=== PATIENT | male | born 1970 | race Caucasian/White ===

== ENCOUNTER 2017-05-28 11:36 | Inpatient (IN) ==
[2017-05-28 12:07] LABS: Bilirubin,Urine Negative (Negative); Blood,Urine Trace (Negative); Color,Urine Yellow (Yellow); Glucose,Urine (UA) Normal (Normal); Ketones,Urine Negative (Negative); Leukocyte Esterase,Urine Negative (Negative); Nitrite,Urine Negative (Negative); Protein,Urine Negative (Neg-Trace); Specific Gravity,Urine 1.012 (1.010-1.025); Urobilinogen,Urine Normal (Normal)
[2017-05-28 12:11] LABS: Clarity,Urine Clear (Clear)
--- NOTE | 2017-05-28 12:35 | Emergency Department Note ---
Disposition Clinical Impression: Pneumonia, Smoker, Obesity, Family history of cardiac disorder in father, Sepsis, Pleural effusion, Hypoxemia, Non-cardiac chest pain, Abnormal EKG, Elevated d-dimer Disposition: Admitted As Inpatient Referrals: NONE,PCP [Primary Care Provider] - Forms: ED Satisfaction Letter General Adult HPI - General Chief complaint: ED Chest Pain Stated complaint: Chest pressure,Congestion Time Seen by Provider: 05/28/17 12:13 Source: patient Limitations: no limitations - History of Present Illness HPI Narrative: 46-year-old male reports the emergency department complaining of midsternal chest pain. The pain is sometimes sharp. He has had the pain intermittently for 3 days. No leg swelling or pain or coughing up blood. The patient has no history of DVT PE or cancer. He is a smoker and has a strong family history of coronary artery disease as well as a history of hypercholesterolemia. The patient had SVT and ablation previously he is currently not taking anticoagulant medication. There is no history of trauma abdominal pain vomiting diarrhea or acute back pain. He has no personal history of aneurysms. No syncope described. The patient has had no trouble walking talking hearing seeing or speaking. The patient has had a cough, but no runny nose or ear pain sore throat or fever. Abdominal pain vomiting or diarrhea. The patient has had pain for 3 days. His female medical care administrator reports his aunt had history of breast cancer and he had been evaluated secondary to concerns for chest swelling regarding malignancy in the past, no malignancy reported or noted based on negative mammogram. The pain does not necessarily radiate to the arms or back or neck. Pain Scale: 8 - Related Data Home Medications Medication Instructions Recorded Confirmed Dexlansoprazole [Dexilant] 60 mg PO DAILY 05/28/17 05/28/17 HYDROcodone/Acet 10/325 mg [[place] 1 tab PO Q8H PRN 05/28/17 05/28/17 10-325 mg] RX: ALPRAZolam [Xanax 1 MG Tablet] 1 mg PO HS PRN 05/28/17 05/28/17 RX: Ibuprofen [Motrin] 600 mg PO Q8H PRN 05/28/17 05/28/17 Allergies Allergy/AdvReac Type Severity Reaction Status Date / Time No Known Allergies Allergy Verified 05/28/17 11:51 All systems ED: reviewed and negative except as stated. Past Medical History - Past Medical History Medical history: Reports: arthritis, other Psychiatric history: Reports: no psych history - Social History Smoking Status: Current every day smoker Smokeless Tobacco Status: No Alcohol use: Reports: none Drug use: Reports: none Physical Exam - General Limitations: no limitations General appearance: alert, in no apparent distress - Head Head exam: atraumatic, normocephalic, normal inspection - Eye Eye exam: Present: normal appearance, PERRL, EOMI. Absent: scleral icterus, conjunctival injection - ENT ENT exam: normal exam, normal oropharynx, mucous membranes moist, TM's normal bilaterally, normal external ear exam - Neck Neck exam: Present: normal inspection, full ROM, trachea midline - Chest Chest inspection: Present: symmetric chest wall rise, other (Asymmetry of the pectoralis noted left larger than right. No flank tenderness or acute trauma.) . Absent: tenderness - Respiratory Respiratory exam: Present: normal lung sounds bilaterally. Absent: respiratory distress, wheezes, stridor, accessory muscle use, prolonged expiratory phase - Cardiovascular Cardiovascular exam: Present: regular rate, normal rhythm, normal heart sounds - Abdominal Exam Abdominal exam: Present: soft, Non-Tender, normal bowel sounds. Absent: tenderness, distention, guarding, rebound, rigidity, Patel's sign, Rovsing's sign, tenderness at McBurney's Point, pulsatile mass - Extremities Exam Extremities exam: Present: normal inspection, full ROM, normal capillary refill. Absent: tenderness, pedal edema, joint swelling, calf tenderness - Expanded Lower Extremity Exam Neurovascular/Tendon exam: Present: normal capillary refill. Absent: motor deficit, sensory deficit, tendon deficit, extremity cold to touch, pallor - Back Exam Back exam: Present: normal inspection, full ROM. Absent: tenderness, CVA tenderness (R), CVA tenderness (L), vertebral tenderness - Neurological Exam Neurological exam: Present: alert, oriented X3, CN II-XII intact. Absent: motor sensory deficit - Psychiatric Psychiatric exam: Present: normal affect, normal mood - Skin Skin exam: Present: warm, dry, intact, normal color. Absent: rash, cyanosis, diaphoresis, erythema, pallor, mottled Course Vital Signs Temperature 99.3 F 05/28/17 11:52 Pulse Rate 101 05/28/17 11:52 Respiratory Rate 22 05/28/17 11:52 Blood Pressure 130/86 05/28/17 11:52 O2 Sat by Pulse Oximetry 94 05/28/17 11:52 Temperature 99.3 F 05/28/17 11:52 Pulse Rate 89 05/28/17 13:00 Respiratory Rate 16 05/28/17 13:00 Blood Pressure 111/80 05/28/17 13:00 O2 Sat by Pulse Oximetry 95 05/28/17 13:00 Oxygen Delivery Oxygen Delivery Room Air Medical Decision Making - MDM Narrative Medical decision making narrative: The patient appears to have pneumonitis based on x-ray. Lactic acid negative. The patient is tachycardic and tachypneic with oxygen saturations dipped down into the 90% range on room air. Given he is significantly symptomatic with pain , and meets SIRS/sepsis criteria, and is hypoxemic, I thought it might be appropriate to admit the patient to the hospital. Levaquin was ordered IV fluids were ordered. Morphine Zofran an aspirin initially were ordered as well. The patient's EKG does not show acute changes. Oxygen was ordered as well as Solu-Medrol and a DuoNeb. The patient is currently stable. I discussed the case with the hospitalist on-call who has accepted the patient to their care. - Lab Data Lab results reviewed: Yes I reviewed the patient's lab results. Result diagrams: 05/28/17 12:45 05/28/17 12:45 Lab Results 05/28/17 05/28/17 05/28/17 Range/Units 11:48 12:45 12:45 WBC 10.0 (4.3-11.1) K/mcL RBC 5.21 (4.19-5.50) M/mcL Hgb 16.5 (12.9-16.9) g/dL Hct 49.5 (37.5-50.1) % MCV 95.0 (83.0-100.0) fL MCH 31.7 (28.0-33.3) pg MCHC 33.3 (31.6-35.5) g/dL RDW 13.8 (11.5-14.5) % Plt Count 226 (140-400) K/mcL MPV 9.8 (9.4-12.4) fL Immature Gran % 0.3 (0-4) % Seg Neutrophils % 72.3 % Lymphocytes % 15.9 % Monocytes % 10.5 % Eosinophils % 0.6 % Basophils % 0.4 % Neutrophils # 7.2 (1.6-8.9) K/mcL Lymphocytes # 1.6 (0.6-4.6) K/mcL Monocytes # 1.1 (0.0-1.3) K/mcL Eosinophils # 0.1 (0.0-0.6) K/mcL Basophils # 0.0 (0.0-0.2) K/mcL D-Dimer (0-500) ng/mLFEU Sodium 136 (136-145) mEq/L Potassium 3.6 (3.5-4.5) mEq/L Chloride 104 (98-109) mEq/L Carbon Dioxide 24 (19-29) mEq/L BUN 4 L (8-26) mg/dL Creatinine 0.85 (0.72-1.25) mg/dL Est GFR ( Amer) > 60 (> 60) Est GFR (Non-Af Amer) > 60 (> 60) BUN/Creatinine Ratio 5 L (6-26) Glucose 103 H (70-99) mg/dL Calculated Osmolality 279 L (280-300) Lactic Acid (0.5-2.2) mmol/L Calcium 9.2 (8.6-10.8) mg/dL Total Bilirubin 0.4 (0.2-1.2) mg/dL AST 14 (5-34) Units/L ALT 15 (0-55) Units/L Alkaline Phosphatase 94 (38-126) Units/L Troponin I (0-0.03) ng/mL C-Reactive Protein (Less than 5) mg/L Serum Total Protein 7.3 (6.0-8.3) g/dL Albumin 3.2 L (3.5-5.0) g/dL Globulin 4.1 H (2.4-3.5) g/dL Albumin/Globulin Ratio 0.8 L (1.1-2.2) Lipase (8-78) Units/L Urine Color Yellow (Yellow) Urine Clarity Clear (Clear) Urine pH 6.0 (5.0-8.0) pH Units Ur Specific [place] 1.012 (1.010-1.025) Urine Protein Negative (Neg-Trace) mg/dL Urine Glucose (UA) Normal (Normal) mg/dL Urine Ketones Negative (Negative) mg/dL Urine Blood Trace H (Negative) Urine Nitrite Negative (Negative) Urine Bilirubin Negative (Negative) Urine Urobilinogen Normal (Normal) mg/dL Ur Leukocyte Esterase Negative (Negative) Ur Culture Indicated? NO (NO) 05/28/17 05/28/17 05/28/17 Range/Units 12:45 12:45 12:45 WBC (4.3-11.1) K/mcL RBC (4.19-5.50) M/mcL Hgb (12.9-16.9) g/dL Hct (37.5-50.1) % MCV (83.0-100.0) fL MCH (28.0-33.3) pg MCHC (31.6-35.5) g/dL RDW (11.5-14.5) % Plt Count (140-400) K/mcL MPV (9.4-12.4) fL Immature Gran % (0-4) % Seg Neutrophils % % Lymphocytes % % Monocytes % % Eosinophils % % Basophils % % Neutrophils # (1.6-8.9) K/mcL Lymphocytes # (0.6-4.6) K/mcL Monocytes # (0.0-1.3) K/mcL Eosinophils # (0.0-0.6) K/mcL Basophils # (0.0-0.2) K/mcL D-Dimer (0-500) ng/mLFEU Sodium (136-145) mEq/L Potassium (3.5-4.5) mEq/L Chloride (98-109) mEq/L Carbon Dioxide (19-29) mEq/L BUN (8-26) mg/dL Creatinine (0.72-1.25) mg/dL Est GFR ( Amer) (> 60) Est GFR (Non-Af Amer) (> 60) BUN/Creatinine Ratio (6-26) Glucose (70-99) mg/dL Calculated Osmolality (280-300) Lactic Acid 1.4 (0.5-2.2) mmol/L Calcium (8.6-10.8) mg/dL Total Bilirubin (0.2-1.2) mg/dL AST (5-34) Units/L ALT (0-55) Units/L Alkaline Phosphatase (38-126) Units/L Troponin I 0.00 (0-0.03) ng/mL C-Reactive Protein 124 H (Less than 5) mg/L Serum Total Protein (6.0-8.3) g/dL Albumin (3.5-5.0) g/dL Globulin (2.4-3.5) g/dL Albumin/Globulin Ratio (1.1-2.2) Lipase 22 (8-78) Units/L Urine Color (Yellow) Urine Clarity (Clear) Urine pH (5.0-8.0) pH Units Ur Specific [place] (1.010-1.025) Urine Protein (Neg-Trace) mg/dL Urine Glucose (UA) (Normal) mg/dL Urine Ketones (Negative) mg/dL Urine Blood (Negative) Urine Nitrite (Negative) Urine Bilirubin (Negative) Urine Urobilinogen (Normal) mg/dL Ur Leukocyte Esterase (Negative) Ur Culture Indicated? (NO) 05/28/17 Range/Units 12:45 WBC (4.3-11.1) K/mcL RBC (4.19-5.50) M/mcL Hgb (12.9-16.9) g/dL Hct (37.5-50.1) % MCV (83.0-100.0) fL MCH (28.0-33.3) pg MCHC (31.6-35.5) g/dL RDW (11.5-14.5) % Plt Count (140-400) K/mcL MPV (9.4-12.4) fL Immature Gran % (0-4) % Seg Neutrophils % % Lymphocytes % % Monocytes % % Eosinophils % % Basophils % % Neutrophils # (1.6-8.9) K/mcL Lymphocytes # (0.6-4.6) K/mcL Monocytes # (0.0-1.3) K/mcL Eosinophils # (0.0-0.6) K/mcL Basophils # (0.0-0.2) K/mcL D-Dimer 1181 H (0-500) ng/mLFEU Sodium (136-145) mEq/L Potassium (3.5-4.5) mEq/L Chloride (98-109) mEq/L Carbon Dioxide (19-29) mEq/L BUN (8-26) mg/dL Creatinine (0.72-1.25) mg/dL Est GFR ( Amer) (> 60) Est GFR (Non-Af Amer) (> 60) BUN/Creatinine Ratio (6-26) Glucose (70-99) mg/dL Calculated Osmolality (280-300) Lactic Acid (0.5-2.2) mmol/L Calcium (8.6-10.8) mg/dL Total Bilirubin (0.2-1.2) mg/dL AST (5-34) Units/L ALT (0-55) Units/L Alkaline Phosphatase (38-126) Units/L Troponin I (0-0.03) ng/mL C-Reactive Protein (Less than 5) mg/L Serum Total Protein (6.0-8.3) g/dL Albumin (3.5-5.0) g/dL Globulin (2.4-3.5) g/dL Albumin/Globulin Ratio (1.1-2.2) Lipase (8-78) Units/L Urine Color (Yellow) Urine Clarity (Clear) Urine pH (5.0-8.0) pH Units Ur Specific [place] (1.010-1.025) Urine Protein (Neg-Trace) mg/dL Urine Glucose (UA) (Normal) mg/dL Urine Ketones (Negative) mg/dL Urine Blood (Negative) Urine Nitrite (Negative) Urine Bilirubin (Negative) Urine Urobilinogen (Normal) mg/dL Ur Leukocyte Esterase (Negative) Ur Culture Indicated? (NO) - Radiology Data Radiology results reviewed: Yes I reviewed the patient's radiology results. Critical Care Time Critical Care Time: Yes (31) Attestation: 10 minutes initial evaluation 10 Minutes documenting the medical record and reviewing data 5 minutes reevaluation 6 minutes reviewing with the hospitalist and arranging for admission
[2017-05-28] MEDS ORDERED: Ondansetron 4 MG/2 ML VIAL IVP ONE (12:36)
[2017-05-28] MEDS ORDERED: *HR* Morphine 2 MG/ML SYRINGE IVP ONE (12:36)
[2017-05-28] MEDS ORDERED: Aspirin 325 MG TABLET PO ONE (12:36)
[2017-05-28 12:55] LABS: Basophils % 0.4 %; Eosinophils # 0.1 K/mcL (0.0-0.6); Eosinophils % 0.6 %; Hematocrit 49.5 % (37.5-50.1); Hemoglobin 16.5 g/dL (12.9-16.9); Immature Granulocytes % 0.3 % (0-4); Lymphocytes # 1.6 K/mcL (0.6-4.6); Lymphocytes % 15.9 %; Mean Corpuscular HGB Conc 33.3 g/dL (31.6-35.5); Mean Corpuscular Hemoglobin 31.7 pg (28.0-33.3); Mean Platelet Volume 9.8 fL (9.4-12.4); Monocytes # 1.1 K/mcL (0.0-1.3); Monocytes % 10.5 %; Neutrophils # 7.2 K/mcL (1.6-8.9); Platelet Count 226 K/mcL (140-400); Red Blood Count 5.21 M/mcL (4.19-5.50); Red Cell Distribution Width 13.8 % (11.5-14.5); Segmented Neutrophils % 72.3 %
[2017-05-28] MEDS ORDERED: 0.9 % Sodium Chloride 1,000 ML IVC ONE (12:58)
[2017-05-28] MEDS ORDERED: Levofloxacin 750 MG/150 ML 750 MG/150 ML BAG IVPB ONE (12:59)
[2017-05-28 13:11] LABS: Alanine Aminotransferase 15 Units/L (0-55); Albumin 3.2 g/dL (3.5-5.0); Albumin/Globulin Ratio 0.8 (1.1-2.2); Alkaline Phosphatase 94 Units/L (38-126); Aspartate Amino Transferase 14 Units/L (5-34); BUN/Creatinine Ratio 5 (6-26); Bilirubin,Total 0.4 mg/dL (0.2-1.2); Blood Urea Nitrogen 4 mg/dL (8-26); C-Reactive Protein 124 mg/L (Less than 5); Calcium 9.2 mg/dL (8.6-10.8); Carbon Dioxide 24 mEq/L (19-29); Chloride 104 mEq/L (98-109); Globulin 4.1 g/dL (2.4-3.5); Glucose 103 mg/dL (70-99); Lipase 22 Units/L (8-78); Osmolality,Calculated 279 (280-300); Potassium 3.6 mEq/L (3.5-4.5); Sodium 136 mEq/L (136-145); Total Protein 7.3 g/dL (6.0-8.3); eGFR For African Americans > 60 (> 60); eGFR For Non-African Americans > 60 (> 60)
[2017-05-28] MEDS ORDERED: methylPREDNISolone 125 MG/2 ML VIAL IVP ONE (13:11)
[2017-05-28] MEDS ORDERED: Ipratropium/Albuterol Neb 3 ML IH ONE (13:12)
[2017-05-28] MEDS ORDERED: Naloxone 0.4 MG/ML INJ IVP PRN (16:05)
[2017-05-28] MEDS ORDERED: ALPRAZolam 1 MG TABLET PO PRN (16:13)
--- NOTE | 2017-05-28 16:18 | Internal Med History&Physical ---
<Stephanie Swartz Thomas - Last Filed: 05/28/17 16:33> Date of Encounter: 05/28/17 Time of Encounter: 16:15 Assessment and Plan (1) Pneumonia, unspecified organism Current visit: Yes Status: Acute presented with SOB. Chest CTA with right middle lobe pneumonia, no pulmonary embolism. Levaquin started in ED; will change to Azithromycin and Rocephin. Urinary antigens, resp PCR and sputum cx pending. De-escalate ATB as culture finalize and/or clinically improves. Will need repeat imaging once ATB completed as malignancy could not be ruled out (2) Chest pain Current visit: Yes Status: Acute for 2-3 days prior to presentation. ASA given on arrival. CP reproducible on exam. Low suspicion for ACS. Initial troponin negative, EKG without acute ST changes. Cycle troponin, check echo. Qualifiers: Chest pain type: unspecified Qualified Code(s): R07.9 - Chest pain, unspecified (3) Hip pain, chronic Current visit: Yes Status: Acute bilateral hip pain hx. Cont home vicodin, ibuprofen. Can follow-up outpatient Qualifiers: Laterality: right Qualified Code(s): M25.551 - Pain in right hip; G89.29 - Other chronic pain; G89.29 - Other chronic pain (4) DVT prophylaxis Current visit: Yes Status: Acute heparin Internal Medicine - H&P: HPI Chief complaint: chest ain and SOB Admitted From: Home Plans for Post Hospital Care: Home History of present illness: Mr. Nash is a 46 year old male with PMH anxiety and bilateral hip pain who presented to [facility] on 05/28/2017 with complaints of chest pain and SOB. HE was founf to have pneumonia and was placed in observation status for IV ATB and ACS rule out. Information obtained from chart review and patient report. Patient says he has been experiencing CP and SOB over the last 2-3 days. He described chest pain as constant and like someone sitting on chest, nothing makes better or worse. He also reports SOB and cough. thinks he felt warm last night. Past Med Surg Social Fam HX - Past Medical History Medical history: arthritis, other Psychiatric history: no psych history - Past Surgical History Surgical History: other (ablation ) - Social History Smoking Status: Current every day smoker Packs per day: 1.5 Smokeless Tobacco Status: No Alcohol use: none Drug use: none Internal Medicine - H&P: Meds ALPRAZolam [Xanax 1 MG Tablet] 1 mg PO HS PRN 05/28/17 [History] Dexlansoprazole [Dexilant] 60 mg PO DAILY 05/28/17 [History] HYDROcodone/Acet 10/325 mg [[place] 10-325 mg] 1 tab PO Q8H PRN 05/28/17 [History] Ibuprofen [Motrin] 600 mg PO Q8H PRN 05/28/17 [History] 3 Allergy/AdvReac Type Severity Reaction Status Date / Time No Known Allergies Allergy Verified 05/28/17 11:51 All Systems PM: A 10-system review of systems was performed and is negative for pertinent findings except as documented above in the HPI. - Constitutional Constitutional: no chills, no fever(s), no night sweats - EENT Eyes: no change in vision, no discharge, no pain, no photophobia Ears: no ear discharge, no ear pain, no tinnitus Nose, mouth and throat: no dysphagia, no nasal discharge, no neck pain, no sore throat - Cardiovascular Cardiovascular ROS IM: chest pain, dyspnea, dyspnea on exertion, no diaphoresis , no lightheadedness, no palpitations, no syncope - Respiratory Respiratory: cough, dyspnea, dyspnea on exertion, no wheezing, no excessive phlegm production - Gastrointestinal Gastrointestinal: no abdominal pain, no diarrhea, no hematemesis, no hematochezia, no melena, no nausea, no vomiting - Musculoskeletal Musculoskeletal ROS IM: no numbness, no tingling - Integumentary Integumentary IM: no rash, no unusual bruising - Neurological Neurological ROS: no confusion, no convulsions, no focal weakness, no numbness, no tingling, no tremor(s) - Hematologic/Lymphatic Hematologic/Lymphatic: no easy bruising - Constitutional Vitals: Temp Pulse Resp BP Pulse Ox 99.3 F 89 16 111/80 95 05/28/17 11:52 05/28/17 13:00 05/28/17 13:00 05/28/17 13:00 05/28/17 13:00 General appearance: Present: A&O X 3, no acute distress - Head Head exam: Present: atraumatic, normocephalic - Eye Eye exam: Present: PERRL, conjuntiva pink, sclera anicteric Pupils: Present: PERRL - Neck Neck exam general surgery: Present: supple, trachea midline. Absent: lymphadenopathy - Respiratory Respiratory exam: Present: rhonchi. Absent: accessory muscle use, wheezes Additional comments: diminished breath sounds - Cardiovascular Cardiovascular exam: Present: RRR, +S1, +S2. Absent: diastolic murmur, gallop, rubs, systolic murmur Additional comments: chest wall tenderness - GI/Abdominal GI/Abdominal exam: Present: normal bowel sounds, soft, no peritoneal signs. Absent: distended, tenderness - Extremities Exam Extremities exam: Present: warm, radial pulses palpable and symmetrical. Absent : calf tenderness, cyanotic, pedal edema - Neurological Exam Neurological exam: Present: CN II-XII intact, oriented X3, no focal deficits. Absent: pronater drift, facial droop, speech deficit - Skin Skin exam: Present: dry, intact Internal Med - H&P Results - Labs CBC & Chem 7: 05/28/17 12:45 05/28/17 12:45 <Pollo Burns - Last Filed: 05/28/17 19:55> Date of Encounter: 05/28/17 Internal Medicine - H&P: HPI History of present illness: Mr. Nash is a 46 year old male All Systems PM: A 10-system review of systems was performed and is negative for pertinent findings except as documented above in the HPI. - Constitutional Vitals: Temp Pulse Resp BP Pulse Ox 98.0 F 92 16 105/63 92 05/28/17 18:27 05/28/17 18:27 05/28/17 18:27 05/28/17 18:27 05/28/17 18:27 Internal Med - H&P Results - Labs CBC & Chem 7: 05/28/17 12:45 05/28/17 12:45 Labs: Cardiac Enzymes 05/28/17 Range/Units 19:08 Troponin I 0.00 (0-0.03) ng/mL - Attending Attestation I independently obtained history and examined this patient and my medical decision-making was reviewed with the nurse practitioner. I agree with the documented findings, disposition and treatment plan as described. My findings are summarized below: He is in no acute distress, speaking in full sentences. Lungs are clear bilaterally heart is regular. Chest x-ray reveals findings consistent with pneumonia. Plan: We will treat the patient with ceftriaxone and azithromycin for pneumonia , IV steroids and inhaled bronchodilator.
[2017-05-28] MEDS ORDERED: Ibuprofen 600 MG TABLET PO PRN (16:29)
[2017-05-28] MEDS: *HR* HYDROcodone/Acet 10/325 mg TABLET PO PRN (17:55)
[2017-05-28] MEDS: Nicotine 21 MG PATCH.TD24 TD SCH (19:55)
[2017-05-28] MEDS: Ipratropium/Albuterol Neb 3 ML IH SCH ×2 (20:04→23:41)
--- NOTE | 2017-05-28 21:12 | Electrocardiograph Report ---
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
[2017-05-28] MEDS: ALPRAZolam 1 MG TABLET PO PRN (23:07)
[2017-05-28] MEDS ORDERED: Mag Hydrox/Al Hydrox/Simeth 30 ML UDC PO PRN (23:25)
[2017-05-29 01:12] LABS: Hemoglobin A1C 5.3 %
[2017-05-29 01:18] LABS: Alanine Aminotransferase 11 Units/L (0-55); Albumin 2.8 g/dL (3.5-5.0); Albumin/Globulin Ratio 0.8 (1.1-2.2); Alkaline Phosphatase 80 Units/L (38-126); Aspartate Amino Transferase 10 Units/L (5-34); BUN/Creatinine Ratio 11 (6-26); Bilirubin,Total 0.2 mg/dL (0.2-1.2); Blood Urea Nitrogen 9 mg/dL (8-26); Calcium 9.1 mg/dL (8.6-10.8); Carbon Dioxide 23 mEq/L (19-29); Chloride 107 mEq/L (98-109); Chol/HDL Ratio 5.2 (0-4.9); Cholesterol 171 mg/dL (< 200); Globulin 3.5 g/dL (2.4-3.5); Glucose 237 mg/dL (70-99); HDL Cholesterol 33 mg/dL (40-59); Hematocrit 43.7 % (37.5-50.1); Hemoglobin 14.9 g/dL (12.9-16.9); LDL Cholesterol,Calculated 127 mg/dL (0-99); Mean Corpuscular HGB Conc 34.1 g/dL (31.6-35.5); Mean Corpuscular Hemoglobin 32.6 pg (28.0-33.3); Mean Corpuscular Volume 95.6 fL (83.0-100.0); Mean Platelet Volume 10.1 fL (9.4-12.4); Osmolality,Calculated 290 (280-300); Platelet Count 222 K/mcL (140-400); Potassium 3.8 mEq/L (3.5-4.5); Red Blood Count 4.57 M/mcL (4.19-5.50); Red Cell Distribution Width 13.8 % (11.5-14.5); Sodium 137 mEq/L (136-145); Total Protein 6.3 g/dL (6.0-8.3); Triglycerides 57 mg/dL (< 150); eGFR For African Americans > 60 (> 60); eGFR For Non-African Americans > 60 (> 60)
[2017-05-29] MEDS: Ipratropium/Albuterol Neb 3 ML IH SCH ×6 (04:32→23:54)
[2017-05-29] MEDS: MethylPREDNISolone 40 MG/ML VIAL IVP SCH ×3 (06:02→17:51)
[2017-05-29] MEDS: Aspirin Enteric Coated 81 MG Tablet PO SCH (08:44)
[2017-05-29] MEDS: *HR* HYDROcodone/Acet 10/325 mg TABLET PO PRN ×2 (08:58→18:01)
[2017-05-29] MEDS: Azithromycin 500 MG in D5% in Water 250 ML IVPB SCH (10:20)
--- NOTE | 2017-05-29 13:41 | Internal Med Progress Note ---
Date of Encounter: 05/29/17 Time of Encounter: 13:39 - Assessment and plan (1) Pneumonia, unspecified organism Current Visit: Yes Status: Acute Assessment and plan: Saran Rdz is a 46-year-old male past medical history chronic pain and anxiety who presented to [facility] on 05/28/2017 with complaints of shortness of breath and chest pain. He was found to have pneumonia and was placed in observation status for IV ATB and ACS rule out. Pneumonia of unspecified organism: presented with SOB. Chest CTA with right middle lobe pneumonia, no pulmonary embolism. Levaquin started in ED; will change to Azithromycin and Rocephin. Urinary antigens, resp PCR and sputum cx pending. De-escalate ATB as culture finalize and/or clinically improves. Will need repeat imaging once ATB completed as malignancy could not be ruled out (2) Chest pain Current Visit: Yes Status: Acute Assessment and plan: for 2-3 days prior to presentation. ASA given on arrival. CP reproducible on exam. Low suspicion for ACS. Initial troponin negative, EKG without acute ST changes. Serial troponin negative, TTE with EF 60% and mild diastolic dysfunction. Still with intermittent chest pain on 05/29 exam. And by mouth the night, stress tests in the a.m. Qualifiers: Chest pain type: unspecified Qualified Code(s): R07.9 - Chest pain, unspecified (3) Acute respiratory failure with hypoxia Current Visit: Yes Status: Acute Assessment and plan: With oxygen saturation down to 88% on room air while at rest. Not on home O2. Being treated for pneumonia as noted above. Chest CTA negative for pulmonary embolism. Continue supplemental O2 for now, wean as able. Continue IV steroids. If unable to wean consider further diagnostics and pulmonary consult. (4) Hyperlipidemia Current Visit: Yes Status: Acute Assessment and plan: LDL 127, statin initiated. Qualifiers: Hyperlipidemia type: pure hypercholesterolemia Qualified Code(s): E78.00 - Pure hypercholesterolemia, unspecified; E78.0 - Pure hypercholesterolemia (5) Hip pain, chronic Current Visit: Yes Status: Acute Assessment and plan: Per history. Continue home [place]. Qualifiers: Laterality: right Qualified Code(s): M25.551 - Pain in right hip; G89.29 - Other chronic pain; G89.29 - Other chronic pain (6) DVT prophylaxis Current Visit: Yes Status: Acute Assessment and plan: Heparin - Subjective Interval history: seen and examined at bedside. Says his breathing is a little better, still with some chest discomfort on inspiration. Also with complaint of bilateral hip pain. - Constitutional Vitals: Temp Pulse Resp BP Pulse Ox 97.8 F 107 16 138/76 98 05/29/17 11:04 05/29/17 11:04 05/29/17 11:29 05/29/17 11:04 05/29/17 11:29 General appearance: Present: A&O X 3, no acute distress - Head Head exam: Present: atraumatic, normocephalic - Eye Eye exam: Present: PERRL, conjuntiva pink, sclera anicteric Pupils: Present: PERRL - Neck Neck exam general surgery: Present: supple, trachea midline. Absent: lymphadenopathy - Respiratory Respiratory exam: Present: CTAB. Absent: accessory muscle use, rales, rhonchi, wheezes - Cardiovascular Cardiovascular exam: Present: RRR, +S1, +S2. Absent: diastolic murmur, gallop, rubs, systolic murmur - GI/Abdominal GI/Abdominal exam: Present: normal bowel sounds, soft, no peritoneal signs. Absent: distended, tenderness - Extremities Exam Extremities exam: Present: warm, radial pulses palpable and symmetrical. Absent : calf tenderness, cyanotic, pedal edema - Neurological Exam Neurological exam: Present: CN II-XII intact, oriented X3, no focal deficits. Absent: pronater drift, facial droop, speech deficit - Skin Skin exam: Present: dry, intact Internal Medicine: Result - Labs CBC & Chem 7: 05/29/17 00:41 05/29/17 00:41 Labs: Short CBC 05/29/17 Range/Units 00:41 WBC 8.2 (4.3-11.1) K/mcL Hgb 14.9 D (12.9-16.9) g/dL Hct 43.7 (37.5-50.1) % Plt Count 222 (140-400) K/mcL BMP 05/29/17 00:41 Sodium 137 Potassium 3.8 Chloride 107 Carbon Dioxide 23 BUN 9 Creatinine 0.85 Glucose 237 H Calcium 9.1 Cardiac Enzymes 05/28/17 05/29/17 Range/Units 19:08 00:41 Troponin I 0.00 0.00 (0-0.03) ng/mL Liver Function 05/29/17 Range/Units 00:41 Total Bilirubin 0.2 (0.2-1.2) mg/dL AST 10 (5-34) Units/L ALT 11 (0-55) Units/L Alkaline Phosphatase 80 (38-126) Units/L Albumin 2.8 L (3.5-5.0) g/dL - ABG Interpretation ABG results: PT/INR, D-dimer D-Dimer 1181 ng/mLFEU (0-500) H 05/28/17 12:45 - Impressions Impressions Echocardiogram 05/28/17 16:11 Impressions: Normal LV systolic function, LVEF 60-65%. Mild left ventricular diastolic dysfunction. Normal right ventricular size and function. No significant valvular dysfunction. Unable to estimate RVSP due to lack of TR jet. Left Ventricular Wall Motion: Rest Echo Findings All wall segments showed normal motion. Findings: Study Quality * Suboptimal echo windows. ECG Findings * Normal sinus rhythm. Left Ventricle * Normal LV systolic function, LVEF 60-65%. * Normal LV chamber size and wall thickness. * Mild left ventricular diastolic dysfunction. Right Ventricle * Normal right ventricular size and function. Left Atrium * Normal left atrial size. Right Atrium * Normal right atrial size. Aorta * Normally sized aortic root. Pericardium * There is no pericardial effusion present. IVC * The IVC is not dilated. Aortic Valve * Aortic valve not well visualized. It appears trileaflet. * Normal aortic valve function. Mitral Valve * Normal mitral valve structure. * Normal mitral valve function. Tricuspid Valve * Normal tricuspid valve structure. * Normal tricuspid valve function. * Unable to estimate RVSP due to lack of TR jet. Pulmonic Valve * Pulmonic valve not well visualized. * Normal pulmonic valve function. Consult Discharge Plan - Plan Referrals: NONE,PCP [Primary Care Provider] -
[2017-05-29 15:52] LABS: Adenovirus Not Detected (Not Detect); Coronavirus 229E Not Detected (Not Detect); Coronavirus HKU1 Not Detected (Not Detect); Coronavirus NL63 Not Detected (Not Detect); Coronavirus OC43 Not Detected (Not Detect); Human Metapneumovirus Not Detected (Not Detect); Human Rhinovirus/Enterovirus ***DETECTED*** (Not Detect); Influenza A Subtype 2009 H1 Not Detected (Not Detect); Influenza A Untypeable Not Detected (Not Detect); Influenza B Not Detected (Not Detect); Parainfluenza Virus 1 Not Detected (Not Detect); Parainfluenza Virus 2 Not Detected (Not Detect); Parainfluenza Virus 3 Not Detected (Not Detect)
[2017-05-29 15:53] LABS: Bordetella Pertussis Not Detected (Not Detect); Chlamydophila pneumoniae Not Detected (Not Detect); Mycoplasma pneumoniae Not Detected (Not Detect); Parainfluenza Virus 4 Not Detected (Not Detect); Respiratory Syncytial Virus Not Detected (Not Detect)
[2017-05-29] MEDS: Nicotine 21 MG PATCH.TD24 TD SCH (17:58)
[2017-05-29] MEDS: ALPRAZolam 1 MG TABLET PO PRN (21:16)
[2017-05-30] MEDS: MethylPREDNISolone 40 MG/ML VIAL IVP SCH ×3 (00:13→11:42)
[2017-05-30] MEDS: Ipratropium/Albuterol Neb 3 ML IH SCH ×6 (03:38→23:01)
[2017-05-30 05:40] LABS: Hematocrit 43.9 % (37.5-50.1); Hemoglobin 14.3 g/dL (12.9-16.9); Mean Corpuscular HGB Conc 32.6 g/dL (31.6-35.5); Mean Corpuscular Hemoglobin 31.8 pg (28.0-33.3); Mean Corpuscular Volume 97.6 fL (83.0-100.0); Mean Platelet Volume 9.8 fL (9.4-12.4); Platelet Count 257 K/mcL (140-400); Red Cell Distribution Width 14.1 % (11.5-14.5)
[2017-05-30 05:52] LABS: Alanine Aminotransferase 12 Units/L (0-55); Albumin 2.7 g/dL (3.5-5.0); Albumin/Globulin Ratio 0.7 (1.1-2.2); Alkaline Phosphatase 81 Units/L (38-126); Aspartate Amino Transferase 13 Units/L (5-34); BUN/Creatinine Ratio 13 (6-26); Blood Urea Nitrogen 10 mg/dL (8-26); Carbon Dioxide 25 mEq/L (19-29); Chloride 108 mEq/L (98-109); Globulin 3.7 g/dL (2.4-3.5); Glucose 150 mg/dL (70-99); Osmolality,Calculated 290 (280-300); Sodium 139 mEq/L (136-145); Total Protein 6.4 g/dL (6.0-8.3); eGFR For African Americans > 60 (> 60); eGFR For Non-African Americans > 60 (> 60)
[2017-05-30 05:57] LABS: Bilirubin,Total < 0.2 mg/dL (0.2-1.2); Potassium 4.6 mEq/L (3.5-4.5)
[2017-05-30] MEDS ORDERED: Regadenoson 0.4 MG/5 ML SYRINGE IVP ONE (07:42)
[2017-05-30] MEDS: *HR* HYDROcodone/Acet 10/325 mg TABLET PO PRN ×2 (09:12→18:33)
[2017-05-30] MEDS: Azithromycin 500 MG in D5% in Water 250 ML IVPB SCH (09:12)
[2017-05-30] MEDS: Aspirin Enteric Coated 81 MG Tablet PO SCH (09:13)
--- NOTE | 2017-05-30 10:25 | Nuclear Medicine Stress Report ---
Regadenoson Nuclear Stress Name: Saran Nash Date of Study: 05/30/2017 Date: 1970 Ht: 70.0 in Medical Record#: [id number] Age: 46 Wt: 241.0 lb Gender: Male Order #: [id number] Location: [facility] Room: [facility] Supervising Provider: Raymond Miller CNP Reading Physician: Tommy Nance, DO, FACC, FASNY Ordering Physician: Dilcia Howe CNP Stress Technologist: Carlota Garnett, LOGISTICS OPERATIONS DIRECTOR, CCT, CPFT Fishing Accessories Maker: Isaiah Gaona Indications: Chest Pain Impression: Pharmacologic stress ECG is negative for ischemia at level of heart rate achieved. Gated EF = 71%. Small sized, mild intensity, primarily fixed apical inferior and apex perfusion defect suggestive of artifact. Perfusion imaging was negative for ischemia or infarct. Clinical correlation suggested. History: History of Smoking Stress Test Summary: Stress Test Type: Pharmacologic Regadenoson 0.4mg/5ml given IV Baseline Information: Initial Heart Rate: 91 Blood Pressure: 112/62 Stress Information: Stress Time: 4 min sec Test Terminated Due to (primary): As per protocol Maximum Blood Pressure: 112/64 Maximum Heart Rate: 101 Percent Maximum Heart Rate Achieved: 59 Double Product: [id number] METS Reached: 1 Symptoms: Shortness of breath Nuclear Summary: SPECT myocardial perfusion imaging using Tc99m Sestamibi given intravenously was performed at rest and following cardiac stress testing. The resting images were obtained following initial dose of 10.5 mCi. Following stress an additional dose of 33.5 mCi was given at peak exercise or 30 seconds post regadenoson infusion. Medication Given: Time Medication Dose Units Route Findings: Stress Note * Resting ECG demonstrated normal sinus rhythm. * Occasional PVCs noted prior to exam beginning. * Pharmacologic stress ECG is negative for ischemia at level of heart rate achieved. * No arrhythmias were noted during stress. * Patient had no chest pain during stress. Hemodynamic responses * Normal hemodynamic responses to pharmacologic stress. Study Quality * Study quality is average. Gated EF % * Gated EF = 71%. Left Ventricle * LVEDV = 138 mL. NORMALS * Normal wall motion. Apical Perfusion Rest * The apex and apical inferior segments show a mild reduction in perfusion. Apical Perfusion Stress * The apex and apical inferior segments show a mild reduction in perfusion. TID * No evidence of transient ischemic dilatation. TID ratio * TID ratio = 1.12. Lung Uptake * There is no evidence of increase lung uptake. Updated by Tommy Nance DO, FACMari, JUDY, FASRAMIRO on 05/30/2017 10:19:11 AM electronically signed on 05/30/2017 10:20:02 AM with status of Final
--- NOTE | 2017-05-30 11:44 | Internal Med Progress Note ---
Date of Encounter: 05/30/17 Time of Encounter: 11:41 - Assessment and plan (1) Pneumonia, unspecified organism Current Visit: Yes Status: Acute Assessment and plan: Saran Rdz is a 46-year-old male past medical history chronic pain and anxiety who presented to [facility] on 05/28/2017 with complaints of shortness of breath and chest pain. He was found to have pneumonia and was placed in observation status for IV ATB and ACS rule out. Hospital course prolonged due to new, acute onset hypoxic respiratory failure requiring supplemental oxygen. 1. Pneumonia of unspecified organism: presented with SOB. Chest CTA with right middle lobe pneumonia, no pulmonary embolism. Levaquin started in ED; will change to Azithromycin and Rocephin. Urinary antigens negative, resp PCR with rhinovirus. Sputum cx pending. De-escalate ATB as culture finalize and/or clinically improves. Will need repeat imaging once ATB completed as malignancy could not be ruled out 2.Acute respiratory failure with hypoxia: with oxygen saturation down to 88% on room air while at rest. Not on home O2. Being treated for pneumonia as noted above. Chest CTA negative for pulmonary embolism. Continue supplemental O2 for now, wean as able. Continue IV steroids. Oxygen saturation 87% on room air with ambulation on 05/30, Pulm consulted 3. Chest pain: for 2-3 days prior to presentation. ASA given on arrival. CP reproducible on exam. Low suspicion for ACS. Serial troponin negative, EKG without acute ST changes. TTE with EF 60% and mild diastolic dysfunction. Stress test with small, fixed defect suggestive of artifact. Cont ASA, statin. Recommend outpatient follow-up with cardiology. 4. Leukocytosis: WBC 28K, in the setting of steroid use. Being treated for pneumonia as noted above. Does not appear acute or toxic. Afebrile, no tachycardia, no hypotension. Blood cultures negative. Suspect secondary to IV steroid use. Check lactic acid for completeness. 5. Hyperlipidemia: LDL 127, statin initiated. 6. Chronic hip pain: per hx. Cont home [place] 7. DVT prophylaxis: Heparin (2) Chest pain Current Visit: Yes Status: Acute Qualifiers: Chest pain type: unspecified Qualified Code(s): R07.9 - Chest pain, unspecified (3) Acute respiratory failure with hypoxia Current Visit: Yes Status: Acute (4) Hyperlipidemia Current Visit: Yes Status: Acute Qualifiers: Hyperlipidemia type: pure hypercholesterolemia Qualified Code(s): E78.00 - Pure hypercholesterolemia, unspecified; E78.0 - Pure hypercholesterolemia (5) Hip pain, chronic Current Visit: Yes Status: Acute Qualifiers: Laterality: right Qualified Code(s): M25.551 - Pain in right hip; G89.29 - Other chronic pain; G89.29 - Other chronic pain (6) DVT prophylaxis Current Visit: Yes Status: Acute - Subjective Interval history: Seen and examined at bedside. He just returned from stress test. Says he is doing okay and breathing is a little better. He is coughing but non-productive. No CP on my exam. Ambulated with patient and oxygen saturation dropped to 87% on room air. - Constitutional Vitals: Temp Pulse Resp BP Pulse Ox 97.9 F 91 18 130/75 91 05/30/17 10:32 05/30/17 10:32 05/30/17 10:32 05/30/17 10:32 05/30/17 10:32 General appearance: Present: A&O X 3, no acute distress - Head Head exam: Present: atraumatic, normocephalic - Eye Eye exam: Present: PERRL, conjuntiva pink, sclera anicteric Pupils: Present: PERRL - Neck Neck exam general surgery: Present: supple, trachea midline. Absent: lymphadenopathy - Respiratory Respiratory exam: Present: CTAB. Absent: accessory muscle use, rales, rhonchi, wheezes - Cardiovascular Cardiovascular exam: Present: RRR, +S1, +S2. Absent: diastolic murmur, gallop, rubs, systolic murmur Additional comments: Tele: ST with ambulation - GI/Abdominal GI/Abdominal exam: Present: normal bowel sounds, soft, no peritoneal signs. Absent: distended, tenderness - Extremities Exam Extremities exam: Present: warm, radial pulses palpable and symmetrical. Absent : calf tenderness, cyanotic, pedal edema - Neurological Exam Neurological exam: Present: CN II-XII intact, oriented X3, no focal deficits. Absent: pronater drift, facial droop, speech deficit - Skin Skin exam: Present: dry, intact Internal Medicine: Result - Labs CBC & Chem 7: 05/30/17 05:31 05/30/17 05:31 Labs: Short CBC 05/30/17 Range/Units 05:31 WBC 28.1 H D (4.3-11.1) K/mcL Hgb 14.3 (12.9-16.9) g/dL Hct 43.9 (37.5-50.1) % Plt Count 257 (140-400) K/mcL BMP 05/30/17 05:31 Sodium 139 Potassium 4.6 H Chloride 108 Carbon Dioxide 25 BUN 10 Creatinine 0.77 Glucose 150 H Calcium 9.0 Liver Function 05/30/17 Range/Units 05:31 Total Bilirubin < 0.2 L (0.2-1.2) mg/dL AST 13 (5-34) Units/L ALT 12 (0-55) Units/L Alkaline Phosphatase 81 (38-126) Units/L Albumin 2.7 L (3.5-5.0) g/dL - ABG Interpretation ABG results: PT/INR, D-dimer D-Dimer 1181 ng/mLFEU (0-500) H 05/28/17 12:45 Consult Discharge Plan - Plan Referrals: NONE,PCP [Primary Care Provider] -
--- NOTE | 2017-05-30 12:24 | Pulmonology Consult Note ---
Date of Encounter: 05/30/17 Time of Encounter: 12:24 Assessment and Plan (1) Acute respiratory failure with hypoxia Current Visit: Yes Status: Acute In conclusion this is a 38-year-old gentleman with past medical history of tobacco abuse who presents with chest pain cough and shortness of breath found to have acute hypoxic respiratory failure. This is multifactorial but related to acute viral pneumonia with likely exacerbation of undiagnosed COPD related to chronic tobacco abuse and some industrial exposures. I also have concern for undiagnosed obstructive sleep apnea that will need further outpatient evaluation. Recommendations: -Wean FiO2 to keep saturation greater than 88%. He will need a walking pulse oximetry study prior to discharge. Would encourage incentive spirometry out of bed to chair and early ambulation -De-escalate antimicrobials to complete course of azithromycin 5 days -Switch steroid formulation to enteral prednisone 40 mg which can be tapered over the next 2 weeks -Would schedule short acting bronchodilators every 4-6 hours and schedule as needed albuterol as needed -Start Symbicort 160/4.5 2 puffs twice a day patient should be discharged with this along with a short acting beta agonists "rescue inhaler" please have respiratory therapy educate the patient on proper inhaler technique -Tobacco abuse counseling has been given patient is requesting a nicotine patch and I also would suggest discharged with nicotine replacement -Weight loss encouraged to heart healthy diet modification and exercise as tolerated -Outpatient polysomnogram -Outpatient follow-up in pulmonary clinic for PFTs and further evaluation of possible obstructive lung disease and sleep-disordered breathing -He will also need repeat CT scan in 4-6 weeks to follow up on resolution of radiographic abnormalities included right middle lobe infiltrate and hilar adenopathy which is most likely reactive in nature -DVT prophylaxis while inpatient unless contraindication arises Thank you for this consultation please call with any questions [phone] (2) Viral pneumonia Current Visit: Yes Status: Acute (3) COPD with exacerbation Current Visit: Yes Status: Acute (4) Sleep-disordered breathing Current Visit: Yes Status: Acute (5) Obesity Current Visit: Yes Status: Acute Qualifiers: Obesity type: due to excess calories Obesity classification: unspecified obesity classification Serious obesity comorbidity presence: unspecified whether serious comorbidity present Qualified Code(s): E66.09 - Other obesity due to excess calories (6) Tobacco abuse Current Visit: Yes Status: Acute (7) DVT prophylaxis Current Visit: Yes Status: Acute History of Present Illness Consult date: 05/30/17 Requesting physician: Stephanie Swartz Reason for consult: hypoxemia Chief complaint: Shortness of breath History of present illness: Very pleasant 46-year-old Romanian who presented with cough shortness of breath headache approximately 2 days prior to arrival. In the ED was found to be hypoxic requiring between 2 and 3 L oxygen to keep saturation greater than 90% also complaining of significant chest pain although testing this far has not revealed a cardiac etiology. CT was also performed which was negative for acute filling defect but notable for right middle lobe infiltrate. Respiratory infectious panel was positive for entero.rhinovirus bacterial workup including strep pneumoniae and Legionella antigens have been negative thus far. He is been treated with steroids and antimicrobials with some modest improvement. He is a 2 pack-a-day smoker since 1 early 20s. 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 No exposure no exotic pets no recent travel his has been sick however with similar symptoms home. In addition to respiratory symptoms he has noticed that over the last 6 months to year he has had increasing shortness of breath with exertion. He also has difficulty with sleep initiation and sleep maintenance says that he snores very loudly he wakes up feeling unrefreshed has been noted to have witnessed apneas. Past Med Surg Social Fam HX - Past Medical History Medical history: arthritis, other Psychiatric history: no psych history - Past Surgical History Surgical History: other (ablation ) - Social History Smoking Status: Current every day smoker Packs per day: 1.5 Smokeless Tobacco Status: No Alcohol use: none Drug use: none Medications and Allergies ALPRAZolam [Xanax 1 MG Tablet] 1 mg PO HS PRN 05/28/17 [History] Dexlansoprazole [Dexilant] 60 mg PO DAILY 05/28/17 [History] HYDROcodone/Acet 10/325 mg [Ransom 10-325 mg] 1 tab PO Q8H PRN 05/28/17 [History] Ibuprofen [Motrin] 600 mg PO Q8H PRN 05/28/17 [History] 3 Allergy/AdvReac Type Severity Reaction Status Date / Time No Known Allergies Allergy Verified 05/28/17 11:51 All Systems: A 10-system review of systems was performed and is negative for pertinent findings except as documented above in the HPI. Physical Examination General appearance: no acute distress Auscultation: right: diminished breath sounds (Right lower lung malin), bilateral: wheezes (End expiratory wheeze), rhonchi (Scattered rhonchi primarily in the lower lung malin) Cardiovascular: regular rate and rhythm Gastrointestinal: normoactive bowel sounds Extremities: no cyanosis, no edema, no clubbing Musculoskeletal: no deformities normal mental status, non-focal exam mood appropriate Results - Laboratory Findings CBC and BMP: 05/30/17 05:31 05/30/17 05:31 PT/INR, D-dimer D-Dimer 1181 ng/mLFEU (0-500) H 05/28/17 12:45 Abnormal lab findings: Abnormal lab results WBC 28.1 K/mcL (4.3-11.1) H D 05/30/17 05:31 D-Dimer 1181 ng/mLFEU (0-500) H 05/28/17 12:45 Potassium 4.6 mEq/L (3.5-4.5) H 05/30/17 05:31 Glucose 150 mg/dL (70-99) H 05/30/17 05:31 Total Bilirubin < 0.2 mg/dL (0.2-1.2) L 05/30/17 05:31 C-Reactive Protein 124 mg/L (Less than 5) H 05/28/17 12:45 Albumin 2.7 g/dL (3.5-5.0) L 05/30/17 05:31 Globulin 3.7 g/dL (2.4-3.5) H 05/30/17 05:31 Albumin/Globulin Ratio 0.7 (1.1-2.2) L 05/30/17 05:31 LDL Cholesterol, Calc 127 mg/dL (0-99) H 05/29/17 00:41 HDL Cholesterol 33 mg/dL (40-59) L 05/29/17 00:41 Cholesterol/HDL Ratio 5.2 (0-4.9) H 05/29/17 00:41 Urine Blood Trace (Negative) H 05/28/17 11:48 Entero/Rhino (PCR) DETECTED (Not Detect) A 05/29/17 13:50 - Diagnostic Findings Chest x-ray: report reviewed, image reviewed CT scan - chest: report reviewed, image reviewed Consult Discharge Plan - Plan Referrals: NONE,PCP [Primary Care Provider] -
[2017-05-30] MEDS: Nicotine 21 MG PATCH.TD24 TD SCH (12:55)
[2017-05-30] MEDS: Budesonide/Formoterol 160/4.5 MDI IH SCH (20:22)
[2017-05-30] MEDS: ALPRAZolam 1 MG TABLET PO PRN (21:01)
[2017-05-31] MEDS: *HR* HYDROcodone/Acet 10/325 mg TABLET PO PRN ×3 (02:32→23:36)
[2017-05-31] MEDS: Ipratropium/Albuterol Neb 3 ML IH SCH ×6 (03:46→23:01)
[2017-05-31 06:00] LABS: Hematocrit 39.7 % (37.5-50.1); Hemoglobin 13.2 g/dL (12.9-16.9); Mean Corpuscular HGB Conc 33.2 g/dL (31.6-35.5); Mean Corpuscular Hemoglobin 32.1 pg (28.0-33.3); Mean Corpuscular Volume 96.6 fL (83.0-100.0); Mean Platelet Volume 10.1 fL (9.4-12.4); Platelet Count 260 K/mcL (140-400); Red Blood Count 4.11 M/mcL (4.19-5.50); Red Cell Distribution Width 14.3 % (11.5-14.5)
[2017-05-31 06:15] LABS: Alanine Aminotransferase 19 Units/L (0-55); Albumin 2.6 g/dL (3.5-5.0); Albumin/Globulin Ratio 0.9 (1.1-2.2); Alkaline Phosphatase 94 Units/L (38-126); Aspartate Amino Transferase 15 Units/L (5-34); BUN/Creatinine Ratio 14 (6-26); Blood Urea Nitrogen 11 mg/dL (8-26); Calcium 8.7 mg/dL (8.6-10.8); Carbon Dioxide 25 mEq/L (19-29); Chloride 107 mEq/L (98-109); Glucose 200 mg/dL (70-99); Osmolality,Calculated 295 (280-300); Sodium 140 mEq/L (136-145); Total Protein 5.6 g/dL (6.0-8.3); eGFR For African Americans > 60 (> 60); eGFR For Non-African Americans > 60 (> 60)
[2017-05-31 06:16] LABS: Bilirubin,Total < 0.2 mg/dL (0.2-1.2); Potassium 3.2 mEq/L (3.5-4.5)
[2017-05-31] MEDS: Budesonide/Formoterol 160/4.5 MDI IH SCH ×2 (07:50→19:43)
[2017-05-31] MEDS: Nicotine 21 MG PATCH.TD24 TD SCH (09:09)
[2017-05-31] MEDS: predniSONE 20 MG TABLET PO SCH (09:09)
[2017-05-31] MEDS: Aspirin Enteric Coated 81 MG Tablet PO SCH (09:09)
[2017-05-31] MEDS: Azithromycin 500 MG in D5% in Water 250 ML IVPB SCH (09:10)
[2017-05-31] MEDS ORDERED: 0.9 % Sodium Chloride 1,000 ML IVC ONE (09:59)
--- NOTE | 2017-05-31 10:01 | Discharge Summary ---
Date of Encounter: 05/31/17 Time of Encounter: 09:47 - Discharge Diagnosis (1) Pneumonia, unspecified organism Priority: Primary Status: Acute Comments: Saran Nash is a 46-year-old male past medical history chronic pain and anxiety who presented to [facility] on 05/28/2017 with complaints of shortness of breath and chest pain. He was found to have pneumonia and was admitted for IV ATB and ACS rule out. Hospital course prolonged due to new, acute hypoxic respiratory failure requiring supplemental oxygen. ACS was ruled out with negative stress test. He is evaluated by pulmonology who felt acute respiratory failure secondary to diagnosis, underlying COPD. 1. Pneumonia of unspecified organism: presented with SOB. Chest CTA with right middle lobe pneumonia, no pulmonary embolism. Levaquin started in ED; will change to Azithromycin and Rocephin. Urinary antigens negative, resp PCR positive for rhinovirus. Initially treated with IV azithromycin, Rocephin. ATB de-escalated to Z-Phuc at discharge. Will need repeat imaging once ATB completed as malignancy could not be ruled out 2.Acute respiratory failure with hypoxia: with oxygen saturation down to 88% on room air while at rest. Not on home O2. Chest CTA negative for pulmonary embolism. Multifactorial with suspected underlying COPD, tobacco use, and pneumonia. He was evaluated by pulmonology who recommended 2 week prednisone taper, Symbicort and rescue inhaler. He will need an outpatient pulmonology follow-up for polysomnogram, PFT testing and repeat CT scan in 4-6 weeks to follow up on resolution of radiographic right middle lobe infiltrate and hilar adenopathy. Follow-up with pulmonology outpatient in 2 weeks. 3. Elevated lactic acid: in the setting of pneumonia. WBC elevated secondary to steroids; patient has not and sepsis. Afebrile, no tachycardia, no hypotension. Initial lactic acid 3.3, trended down to 2.8 with IV fluids. Continue IV fluids. Repeat lactic acid in the morning. Continue ATB for pneumonia as noted above. 4. Chest pain: for 2-3 days prior to presentation. ASA given on arrival. CP reproducible on exam. Low suspicion for ACS. Serial troponin negative, EKG without acute ST changes. TTE with EF 60% and mild diastolic dysfunction. Stress test with small, fixed defect suggestive of artifact. Cont ASA, statin. Recommend outpatient follow-up with cardiology. 5. Leukocytosis: WBC peaked at 28K, in the setting of steroid use. Being treated for pneumonia as noted above. Does not appear acute or toxic. Afebrile , no tachycardia, no hypotension. Blood cultures negative. Suspect secondary to IV steroid use. 6. Hyperlipidemia: LDL 127, statin initiated. 7. Chronic hip pain: per hx. Cont home [place] 8. DVT prophylaxis: Heparin (2) Chest pain Priority: Primary Status: Acute Qualifiers: Chest pain type: unspecified Qualified Code(s): R07.9 - Chest pain, unspecified (3) Acute respiratory failure with hypoxia Priority: Primary Status: Acute (4) Hyperlipidemia Priority: Primary Status: Acute Qualifiers: Hyperlipidemia type: pure hypercholesterolemia Qualified Code(s): E78.00 - Pure hypercholesterolemia, unspecified; E78.0 - Pure hypercholesterolemia (5) Hip pain, chronic Priority: Primary Status: Acute Qualifiers: Laterality: right Qualified Code(s): M25.551 - Pain in right hip; G89.29 - Other chronic pain; G89.29 - Other chronic pain (6) DVT prophylaxis Priority: Secondary Status: Acute - Discharge Medications Home Medications: ALPRAZolam [Xanax 1 MG Tablet] 1 mg PO HS PRN 05/28/17 [History] Dexlansoprazole [Dexilant] 60 mg PO DAILY 05/28/17 [History] HYDROcodone/Acet 10/325 mg [[place] 10-325 mg] 1 tab PO Q8H PRN 05/28/17 [History] Ibuprofen [Motrin] 600 mg PO Q8H PRN 05/28/17 [History] Allergies/Adverse Reactions: 3 Allergy/AdvReac Type Severity Reaction Status Date / Time No Known Allergies Allergy Verified 05/28/17 11:51 Date of admission: 05/30/17 11:41 Primary care physician: PCP NONE Consults: 05/30/17 12:09 Consult to Paper Gluing Operator [CONS] Routine Reason for SW Consult: oxygen 05/30/17 12:21 Consult to Pulmonology [CONS] Routine Consulting Provider: [facility] [place] Reason for Consult: New hypoxic respiratory failure Call Completed: Yes Discharging clinician: Stephanie Swartz Anticipated date of discharge: 05/31/17 - Patient Status Disposition: Home, Self-Care Functional capacity at discharge: independent ambulation Overall status at discharge: patient is progressing back to baseline - Discharge Instructions Follow Up With: Harper Miller CNP [Partnered Physician] - 06/20/17 9:45 am (You will be recieving a new patient packet, please fill it out and bring it to your appointment all with Photo ID, insurance card and medication list. Thank you! If you are unable to keep this appointment please cancel with in 24 hours.) Kareem Herring MD [Partnered Physician] - 06/14/17 9:00 am - Diet and Activity Activity: resume usual activities as tolerated Interval History: Seen and examined at bedside. Patient says he feels better. Breathing is much improved. He is adequately oxygenating with room air. No chest pain. Hospital course: Mr. Nash is a 46 year old male - Time Spent with Patient Total time spent providing and/or coordinating discharge services: - Constitutional Vitals: Temp Pulse Resp BP Pulse Ox 97.4 F L 86 18 136/88 91 05/31/17 07:42 05/31/17 07:42 05/31/17 07:42 05/31/17 07:42 05/31/17 07:42 General appearance: Present: A&O X 3, no acute distress - Head Head exam: Present: atraumatic, normocephalic - Eye Eye exam: Present: PERRL, conjuntiva pink, sclera anicteric Pupils: Present: PERRL - Neck Neck exam general surgery: Present: supple, trachea midline. Absent: lymphadenopathy - Respiratory Respiratory exam: Present: CTAB. Absent: accessory muscle use, rales, rhonchi, wheezes Additional comments: Lung sounds diminished but clear to auscultation. Improved from / exam. Improved air exchange noted. - Cardiovascular Cardiovascular exam: Present: RRR, +S1, +S2. Absent: diastolic murmur, gallop, rubs, systolic murmur - GI/Abdominal GI/Abdominal exam: Present: normal bowel sounds, soft, no peritoneal signs. Absent: distended, tenderness - Extremities Exam Extremities exam: Present: warm, radial pulses palpable and symmetrical. Absent : calf tenderness, cyanotic, pedal edema - Neurological Exam Neurological exam: Present: CN II-XII intact, oriented X3, no focal deficits. Absent: pronater drift, facial droop, speech deficit - Skin Skin exam: Present: dry, intact
[2017-05-31 11:50] LABS: C-Reactive Protein 18 mg/L (Less than 5)
[2017-05-31] MEDS: 0.9 % Sodium Chloride 1,000 ML IVC SCH ×2 (15:29→23:36)
[2017-05-31] MEDS: ALPRAZolam 1 MG TABLET PO PRN (23:36)
[2017-06-01 03:29] LABS: Hematocrit 39.2 % (37.5-50.1); Hemoglobin 12.6 g/dL (12.9-16.9); Mean Corpuscular HGB Conc 32.1 g/dL (31.6-35.5); Mean Corpuscular Hemoglobin 31.5 pg (28.0-33.3); Mean Platelet Volume 9.9 fL (9.4-12.4); Platelet Count 250 K/mcL (140-400); Red Cell Distribution Width 14.3 % (11.5-14.5)
[2017-06-01 03:43] LABS: Alanine Aminotransferase 41 Units/L (0-55); Albumin 2.4 g/dL (3.5-5.0); Albumin/Globulin Ratio 0.9 (1.1-2.2); Alkaline Phosphatase 75 Units/L (38-126); Aspartate Amino Transferase 26 Units/L (5-34); BUN/Creatinine Ratio 12 (6-26); Bilirubin,Total 0.2 mg/dL (0.2-1.2); Blood Urea Nitrogen 9 mg/dL (8-26); Calcium 8.1 mg/dL (8.6-10.8); Carbon Dioxide 28 mEq/L (19-29); Chloride 110 mEq/L (98-109); Globulin 2.8 g/dL (2.4-3.5); Glucose 85 mg/dL (70-99); Osmolality,Calculated 294 (280-300); Potassium 3.7 mEq/L (3.5-4.5); Sodium 143 mEq/L (136-145); Total Protein 5.2 g/dL (6.0-8.3); eGFR For African Americans > 60 (> 60); eGFR For Non-African Americans > 60 (> 60)
[2017-06-01] MEDS: Ipratropium/Albuterol Neb 3 ML IH SCH ×4 (03:54→15:50)
[2017-06-01] MEDS: Budesonide/Formoterol 160/4.5 MDI IH SCH (07:53)
--- NOTE | 2017-06-01 09:28 | Discharge Summary ---
Date of Encounter: 06/01/17 Time of Encounter: 09:34 - Discharge Diagnosis (1) Pneumonia, unspecified organism Priority: Primary Status: Acute Comments: Saran Nash is a 46-year-old male past medical history chronic pain and anxiety who presented to [facility] on 05/28/2017 with complaints of shortness of breath and chest pain. He was found to have pneumonia and was admitted for IV ATB and ACS rule out. Hospital course prolonged due to new, acute hypoxic respiratory failure requiring supplemental oxygen. ACS was ruled out with negative stress test. He is evaluated by pulmonology who felt acute respiratory failure secondary to undiagnosised, underlying COPD, tobacco use and occupational chemical exposure. He was discharged home in stable condition with outpatient follow-up 1. Pneumonia of unspecified organism: presented with SOB. Chest CTA with right middle lobe pneumonia, no pulmonary embolism. Levaquin started in ED; changed to Azithromycin and Rocephin. Urinary antigens negative, resp PCR positive for rhinovirus. Initially treated with IV azithromycin, Rocephin. ATB de- escalated to Z-Phuc at discharge. Will need repeat imaging once ATB completed as malignancy could not be ruled out 2.Acute respiratory failure with hypoxia: with oxygen saturation down to 88% on room air while at rest. Not on home O2. Chest CTA negative for pulmonary embolism. Multifactorial with suspected underlying COPD, tobacco use, and pneumonia. He was evaluated by pulmonology who recommended 2 week prednisone taper, Symbicort and rescue inhaler. He will need an outpatient pulmonology follow-up for PFTs and repeat CT scan in 4-6 weeks to follow up on resolution of radiographic right middle lobe infiltrate and hilar adenopathy. Follow-up with pulmonology outpatient in 2 weeks. 3. Elevated lactic acid: in the setting of pneumonia. WBC elevated secondary to steroids. No evidence of sepsis; afebrile, no tachycardia, no hypotension. Blood cx's negative. Initial lactic acid 3.3 and normalized with IV fluids. 4. Chest pain: for 2-3 days prior to presentation. ASA given on arrival. CP reproducible on exam. Low suspicion for ACS. Serial troponin negative, EKG without acute ST changes. TTE with EF 60% and mild diastolic dysfunction. Stress test with small, fixed defect suggestive of artifact. Cont ASA, statin. 5. Leukocytosis: WBC peaked at 28K, in the setting of steroid use. 6. Hyperlipidemia: LDL 127, statin initiated. Recommend lifestyle modifications and repeat lipid panel with PCP 7. Chronic hip pain: per hx. Cont home [place] 8. Tobacco use: current smoker; cessation strongly advised. Nicotine patch ordered at discharge 9. JOSEPH: 05/31/2017 overnight BiPAP qualification study with over 5 minutes of oxygen saturation less than 88%. Home BiPAP set-up per [facility]. (2) Chest pain Priority: Primary Status: Acute Qualifiers: Chest pain type: unspecified Qualified Code(s): R07.9 - Chest pain, unspecified (3) Acute respiratory failure with hypoxia Priority: Primary Status: Acute (4) Hyperlipidemia Priority: Primary Status: Acute Qualifiers: Hyperlipidemia type: pure hypercholesterolemia Qualified Code(s): E78.00 - Pure hypercholesterolemia, unspecified; E78.0 - Pure hypercholesterolemia (5) Hip pain, chronic Priority: Primary Status: Acute Qualifiers: Laterality: right Qualified Code(s): M25.551 - Pain in right hip; G89.29 - Other chronic pain; G89.29 - Other chronic pain - Discharge Medications Prescriptions: Albuterol Sulfate [Albuterol Inhaler] 0 puff IH Q2HR PRN #1 hfa.aer.ad PRN Reason: Shortness Of Breath/Wheezing Atorvastatin [Lipitor] 20 mg PO HS #30 tablet Azithromycin [Azithromycin 6-Tab Pack] 250 mg PO PER PKG DI #6 tab Budesonide/Formoterol 160/4.5 [Symbicort 160/4.5] 2 puff IH BIDR #1 inhaler Nicotine Patch [Nicoderm] 21 mg TD DAILY #30 patch.td24 predniSONE [Prednisone] 10 mg PO DAILY #40 tab.ds.pk Home Medications: ALPRAZolam [Xanax 1 MG Tablet] 1 mg PO HS PRN 05/28/17 [History] Dexlansoprazole [Dexilant] 60 mg PO DAILY 05/28/17 [History] HYDROcodone/Acet 10/325 mg [Levant 10-325 mg] 1 tab PO Q8H PRN 05/28/17 [History] Ibuprofen [Motrin] 600 mg PO Q8H PRN 05/28/17 [History] Albuterol Sulfate [Albuterol Inhaler] 0 puff IH Q2HR PRN #1 hfa.aer.ad 06/01/17 [Rx] Aspirin Enteric Coated [Aspirin EC] 81 mg PO DAILY #0 tablet.dr 06/01/17 [Rx] Atorvastatin [Lipitor] 20 mg PO HS #30 tablet 06/01/17 [Rx] Azithromycin [Azithromycin 6-Tab Pack] 250 mg PO PER PKG DI #6 tab 06/01/17 [Rx] Budesonide/Formoterol 160/4.5 [Symbicort 160/4.5] 2 puff IH BIDR #1 inhaler 02/10 [Rx] Nicotine Patch [Nicoderm] 21 mg TD DAILY #30 patch.td24 06/01/17 [Rx] predniSONE [Prednisone] 10 mg PO DAILY #40 tab.ds.pk 06/01/17 [Rx] Allergies/Adverse Reactions: 3 Allergy/AdvReac Type Severity Reaction Status Date / Time No Known Allergies Allergy Verified 05/28/17 11:51 Date of admission: 05/30/17 11:41 Primary care physician: PCP NONE Consults: 05/30/17 12:09 Consult to [employer] [facility] [CONS] Routine Reason for SW Consult: oxygen 05/30/17 12:21 Consult to Pulmonology [CONS] Routine Consulting Provider: [facility] Reason for Consult: New hypoxic respiratory failure Call Completed: Yes Discharging clinician: Stephanie Swartz Anticipated date of discharge: 06/01/17 - Patient Status Disposition: Home, Self-Care Condition: Good Functional capacity at discharge: independent ambulation Overall status at discharge: patient is progressing back to baseline - Discharge Instructions Follow Up With: Harper Miller CNP [Partnered Physician] - 06/20/17 9:45 am (You will be recieving a new patient packet, please fill it out and bring it to your appointment all with Photo ID, insurance card and medication list. Thank you! If you are unable to keep this appointment please cancel with in 24 hours.) Kareem Herring MD [Partnered Physician] - 06/14/17 9:00 am - Diet and Activity Activity: increase activity as tolerated, return to work once cleared by your PCP/specialist Diet: low fat, low cholesterol Hospital course: Mr. Nash is a 46 year old male Time spent discussing smoking cessation with patient: 3 to 10 minutes (Nicotine patch ordered at discharge) - Time Spent with Patient Total time spent providing and/or coordinating discharge services: Greater than 30 minutes (38 minutes spent on discharge) - Constitutional Vitals: Temp Pulse Resp BP Pulse Ox 97.5 F L 75 18 161/98 91 06/01/17 06:33 06/01/17 06:33 06/01/17 07:54 06/01/17 06:33 06/01/17 07:54 General appearance: Present: A&O X 3, no acute distress - Head Head exam: Present: atraumatic, normocephalic - Eye Eye exam: Present: PERRL, conjuntiva pink, sclera anicteric Pupils: Present: PERRL - Neck Neck exam general surgery: Present: supple, trachea midline. Absent: lymphadenopathy - Respiratory Respiratory exam: Present: CTAB. Absent: accessory muscle use, rales, rhonchi, wheezes - Cardiovascular Cardiovascular exam: Present: RRR, +S1, +S2. Absent: diastolic murmur, gallop, rubs, systolic murmur - GI/Abdominal GI/Abdominal exam: Present: normal bowel sounds, soft, no peritoneal signs. Absent: distended, tenderness - Extremities Exam Extremities exam: Present: warm, radial pulses palpable and symmetrical. Absent : calf tenderness, cyanotic, pedal edema - Neurological Exam Neurological exam: Present: CN II-XII intact, oriented X3, no focal deficits. Absent: pronater drift, facial droop, speech deficit - Skin Skin exam: Present: dry, intact
[2017-06-01] MEDS: *HR* HYDROcodone/Acet 10/325 mg TABLET PO PRN (10:04)
[2017-06-01] MEDS: Aspirin Enteric Coated 81 MG Tablet PO SCH (10:04)
[2017-06-01] MEDS: predniSONE 20 MG TABLET PO SCH (10:04)
[2017-06-01] MEDS: Azithromycin 500 MG in D5% in Water 250 ML IVPB SCH (10:05)
[2017-06-01] MEDS: Nicotine 21 MG PATCH.TD24 TD SCH (10:05)
[2017-06-01 15:14] VITALS: BP 129/82
[2017-06-01 15:50] LABS: ABG Base Excess 1 mEq/L (-2 to 3); ABG HCO3 26 mEq/L (21-27); ABG Oxygen Saturation 94 % (95-98); ABG PCO2 40 mmHg (35-45); ABG PH 7.42 pH Units (7.32-7.45); ABG PO2 72 mmHg (85-104); ABG TCO2 27 mEq/L (20-26)
== END 2017-06-01 18:40 | disposition home or self-care (01) | DRG 190 ==
LOC: EMEROO 11:36 → 3BNU 11:36
PROVIDERS: ADMIT Registered Nurse; ATTEND Registered Nurse